=== PATIENT | female | born 2005 | race Caucasian/White ===

== ENCOUNTER 2024-03-24 02:31 | Emergency (ER) | payer MEDICAID, SELFPAY ==
[2024-03-24 02:33] VITALS: BP 143/89; PULSE 101; RESP 16; TEMP 36.9; O2SAT 99; BMI 27.1
--- NOTE | 2024-03-24 02:38 | EX.ED.UPPERE ---
HPI History of Present Illness Chief Complaint: Upper Extremity Injury Informant: patient Narrative Narrative: Healthy 18-year-old female presents to 2:30 AM for what she thinks is an infection of her right index finger tip since accidentally cutting into the nail a little bit 1 week ago and having pain and swelling with redness ever since. Not getting better. No systemic symptoms. She does bite her nails but has not in a while. She states she accidentally scraped the nail on the edge of a glass, and it scraped into the top of the nail but did not go all the way through or cause any bleeding at that time. [facility] Medical History (Updated 03/24/24 @ 02:39 by Elizabeth Rivera) Anxiety Anxiety about blushing Depression UTI (urinary tract infection) no medical history Home Medications ?Medication ?Instructions ?Recorded ?Last Taken ?Type cephalexin 500 mg capsule 500 mg PO Q6 #40 CAPSULES 03/24/24 Unknown Rx Allergy/AdvReac Type Severity Reaction Status Date / Time No Known Allergies Allergy Verified 03/24/24 02:40 Social History Smoking Status: Current some day smoker tobacco type: e-cigarettes ROS ROS ED Constitutional Constitutional ED: Denies chills or fever(s) Musculoskeletal Musculoskeletal: Reports extremity pain; Denies neck pain Integumentary Denies Abrasions, rash or wounds Neurologic Neurologic: Denies paresthesias or weakness EXAM Physical Exam Const Vital Signs: 03/24/24 02:33 Temperature 98.4 F Temperature Source Oral Pulse Rate 101 H Respiratory Rate 16 Blood Pressure 143/89 H Blood Pressure Mean 107 Pulse Ox 99 Oxygen Delivery Method Room Air Positive well nourished and well developed General Appearance ED: well developed and NAD Neck full ROM and supple Back/Spine normal ROM and normal to inspection Extremity Extremity Narrative: Tender paronychia base of the right index fingernail, a little more tender at the radial aspect than the ulnar, but no fluctuance or abscess. There is what appears to be an abrasion to the nail itself but it is intact within the bed and the root/cuticle without disruption. No significant tenderness at the pad, not distended, not a felon. Neuro oriented x3, no focal motor deficits and no sensory deficits noted Sensorium / Orientation: alert Psych mental status grossly normal and thought process normal Skin Skin Narrative: Inflammation at the base of the right index fingernail otherwise no rashes or lesions. Rashes: no rashes MDM MDM MDM Narrative Medical decision making narrative: Patient has had no spontaneous discharge from this send there does not appear to be anything drainable here. Therefore and putting her on cephalexin advised and close a patient follow-up, and advised that she discontinue biting her nails which is the more likely cause. Discharge Plan Triage Chief Complaint: Upper Extremity Injury ED Provider: Flex Johnston Dx/Rx/DC Orders Clinical Impression: Paronychia of finger of right hand Instructions: ED Paronychia of the Finger or Toe Prescriptions: New cephalexin 500 mg capsule 500 mg PO Q6 Qty: 40 0RF Referrals: Doctor,Your [Non-Staff] - 1 Week if not improving Print Language: Green[place]ic Disposition Disposition: Home, Self Care
== END 2024-03-24 03:04 | disposition home or self-care (01) ==
LOC: ED 02:48
PROVIDERS: Emergency Provider Emergency Medicine; Visit Provider Emergency Medicine
DX: L03.011 Cellulitis of right finger (principal); F17.290 Nicotine dependence, other tobacco product, uncomplicated
CPT/HCPCS: 99282